=== PATIENT | female | born 1975 | race Caucasian/White ===

== ENCOUNTER 2024-09-09 13:22 | Emergency (ER) | payer MEDICAID, SELFPAY ==
[2024-09-09 13:32] VITALS: BP 123/86; PULSE 95; RESP 18; TEMP 36.6; O2SAT 98
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
[2024-09-09 16:23] VITALS: BP 118/78; PULSE 75; RESP 18; TEMP 36.7; O2SAT 96
[2024-09-09] MEDS: HYDROcodone/APAP 5/325 TABLET 1 TAB PO (16:28)
== END 2024-09-09 16:33 | disposition home or self-care (01) ==
PROVIDERS: Emergency Provider Emergency Medicine
DX: S52.591A Other fractures of lower end of right radius, initial encounter for closed fracture (principal); S23.3XXA Sprain of ligaments of thoracic spine, initial encounter; S20.219A Contusion of unspecified front wall of thorax, initial encounter; S00.83XA Contusion of other part of head, initial encounter; Y09 Assault by unspecified means
CPT/HCPCS: 29125; 70450; 70486; 71100; 72072; 73100; 73552; 99284; A9270

== ENCOUNTER 2024-10-03 12:37 | Emergency (ER) | payer MEDICAID, SELFPAY ==
[2024-10-03 12:39] VITALS: PULSE 114; RESP 16; O2SAT 99; BMI 24.5
[2024-10-03 12:45] VITALS: BP 151/105; PULSE 103; RESP 20; TEMP 36.6; O2SAT 93
--- NOTE | 2024-10-03 12:46 | PC.NURSE ---
Per patient was at [employer] eating and does not recall eating or doing anything else. Denies drug use. Patient awake, alert and oriented x4, now.
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
[2024-10-03 14:41] LABS: Collection Type, Urine Clean Catch
[2024-10-03 15:12] LABS: Bacteria,Urine Rare; Bilirubin,Urine Negative (Negative); Blood,Urine Negative (Negative); Clarity,Urine Clear (Clear/Hazy); Color,Urine Lt-Yellow (Lt Yel-Yel); Glucose, Urine Negative (Negative); Ketones,Urine Negative (Negative); Leukocyte Esterase,Urine Positive (Negative); Nitrite,Urine Positive (Negative); PH,Urine 6.5 (5.0-7.0); Protein,Urine Negative (Neg - Trace); RBC,Urine 1 /hpf (0-3); Specific Gravity,Urine 1.012 (1.001-1.035); Squamous Epithelial Cell,Urine < 1 /hpf (0-5); Urobilinogen,Urine Negative mg/dL (0.0-1.0); WBC,Urine 5 /hpf (0-5)
[2024-10-03 15:15] LABS: Basophils # (Auto) 0.0 Thou/mm3 (0.0-0.2); Basophils % (Auto) 0 % (0-2.5); Eosinophils # (Auto) 0.1 Thou/mm3 (0.0-0.5); Eosinophils % (Auto) 1 % (0-10); Hematocrit 35.4 % (36.0-46.0); Hemoglobin 11.6 g/dL (12.0-16.0); Immature Granulocytes Auto 0.03 Thou/mm3 (0.00-0.00); Lymphocytes # (Auto) 1.4 Thou/mm3 (1.0-4.8); Lymphocytes % (Auto) 18 % (10-50); Mean Corpuscular HGB Conc 32.8 g/dl (31.0-37.0); Mean Corpuscular Hemoglobin 31.0 pg (25.0-35.0); Mean Corpuscular Volume 95 fL (80-100); Monocytes # (Auto) 0.6 Thou/mm3 (0.0-0.8); Monocytes % (Auto) 7 % (0-12); Neutrophils # (Auto) 5.6 Thou/mm3 (1.8-7.7); Neutrophils % (Auto) 73 % (37-80); Nucleated Red Blood Cell # 0.00 Thou/mm3 (0.00-0.00); Nucleated Red Blood Cell % 0 /100 WBC (0); Platelet Count 287 Thou/mm3 (140-440); RDW Standard Deviation 47.8 fL (36.4-46.3); Red Blood Count 3.74 Miln/mm3 (4.00-5.20); White Blood Count 7.7 Thou/mm3 (3.6-11.0)
[2024-10-03 15:42] LABS: Alanine Aminotransferase 17 U/L (10-49); Albumin, Serum 3.8 gm/dL (3.5-5.0); Albumin/Globulin Ratio 1.4 (1.2-2.2); Alkaline Phosphatase 116 U/L (46-116); Anion Gap 6 (7-16); Aspartate Amino Transferase 23 U/L (0-34); BUN/Creatinine Ratio 21 Ratio (12-20); Bilirubin,Total 0.4 mg/dL (0.3-1.2); Blood Urea Nitrogen 15 mg/dL (9-23); Calcium 8.7 mg/dL (8.3-10.6); Calcium (Corrected) 8.9 mg/dL (8.5-10.1); Carbon Dioxide 30.4 mMol/L (20.0-31.0); Chloride 105 mMol/L (98-107); Creatinine (Component) 0.7 mg/dL (0.6-1.3); Estimated Creatinine Clearance 83.0 mL/min (>60); Globulin 2.8 gm/dL (2.3-3.5); Glucose 95 mg/dL (74-106); Osmolality,Calculated 282 (275-295); Potassium 3.6 mMol/L (3.4-5.1); Sodium 141 mMol/L (136-145); Total Protein 6.6 gm/dL (5.7-8.2); eGFR > 60 See Note
[2024-10-03 15:43] LABS: Culture Indicated,Urine Yes
[2024-10-03 16:01] LABS: Amphetamine/Methamp Scrn,U Positive (Negative); Barbiturate Screen,Urine Negative (Negative); Benzodiazepines Screen,Urine Negative (Negative); Benzoylecgonine Screen, Ur Negative (Negative); Fentanyl Screen,Urine Positive (Negative); Opiate Screen,Urine Negative (Negative); THC Screen,Urine Positive (Negative)
[2024-10-03 17:09] VITALS: BP 134/103; PULSE 92; RESP 18; TEMP 36.6; O2SAT 97
== END 2024-10-03 17:19 | disposition home or self-care (01) ==
PROVIDERS: Emergency Provider Emergency Medicine
DX: T40.411A Poisoning by fentanyl or fentanyl analogs, accidental (unintentional), initial encounter (principal); I47.10 Supraventricular tachycardia, unspecified
CPT/HCPCS: 36415; 80053; 80307; 81001; 85025; 87077; 87086; 87186; 96127; 99283

== ENCOUNTER 2025-02-01 00:10 | Emergency (ER) | payer MEDICAID, SELFPAY ==
--- NOTE | 2025-02-01 00:20 | EKG_ITS ---
[facility] Test Date: 2025-02-01 Pat Name: ARTHUR WISEMAN Department: Room: - Gender: Female Ch[employer] Feeder: : 1975 Requested By: Dawson Barnes Order Number: [id number] Reading MD: Dawson Barnes Measurements Intervals [place] Rate: 86 P: 46 AK: 149 QRS: 62 QRSD: 94 T: 65 QT: 374 QTc: 449 Interpretive Statements SINUS RHYTHM POSSIBLE RIGHT VENTRICULAR CONDUCTION DELAY [RSR (QR) IN V1/V2] MODERATE VOLTAGE CRITERIA FOR LVH, CONSIDER NORMAL VARIANT [MEETS CRITERIA IN ONE OF: R(aVL), S(V1), R(V5), R(V5/V6)+S(V1)] No previous ECG available for comparison /[id number]/S0/[id number].pdf
[2025-02-01 00:21] VITALS: PULSE 106; RESP 16; O2SAT 98; BMI 20.9
--- NOTE | 2025-02-01 00:22 | EDNOTE_ITS ---
ED General RME/HPI General Chief complaint: Overdose Stated complaint: OVERDOSE Time Seen by Provider: 02/01/25 00:20 Arrival date/time: 02/01/25 00:10 Related Data Home Medications ?Medication ?Instructions ?Recorded ?Confirmed Hydrocodone/Acetaminophen * (NORCO 1 tab PO Q4H PRN PA IN #0 tabs 06/01/14 10/325 *) Amitriptyline Hcl * (ELAVIL *) 75 mg PO QDAY ##30 03/13 alprazolam 0.25 mg tablet 0.25 mg PO TID PRN ANXIETY # #45 08/27/15 clonazepam 2 mg tablet 2 mg PO BID ##60 08/27/15 Previous Rx's ?Medication ?Instructions ?Recorded prednisone 10 mg tablet 10 mg PO QDAY #21 tabs 09/17 cyclobenzaprine 10 mg tablet 10 mg PO BID PRN muscle s pasm #10 09/09/24 tabs ibuprofen 800 mg tablet 800 mg PO Q8H PRN pain #20 t abs 09/09/24 Allergies Allergy/AdvReac Type Severity Reaction Status Date / Time No Known Allergies Allergy Verified 02/01/25 00:20 ED Exam Narrative Physical exam: Physical Exam: GENERAL: Somnolent but arousable and does answer questions appropriately, states that she feels cold, appears disheveled HEENT: NC/AT. Moist mucosa. PERRLA/EOMI. CARDIO: Heart RRR, no obvious murmurs, no JVD. PULM: No coughing or visible SOB. Lungs CTA B/L. GI: Abdomen soft, NT/ND, +BS. SKIN/MSK/EXT: L femur removed, replaced with titanium lorne. No wounds/discolo ration/rashes/edema. +Pedal pulses present B/L. NEURO: Oriented x2 (person, place, unknown purpose purpose, does not know what led to her ending up in hospital), Moves extremities x4 no focal neurologic deficits noted. Course Quality Measures none Orders Category Date Time Status Bedside Blood Glucose NOW Care 02/01/25 00:20 Active Waste Reduction Coordinator NOW Care 02/01/25 00:20 Active Continuous Pulse Oximetry NOW Care 02/01/25 00:20 Completed EKG (ED ONLY) *Do not use* NOW Care 02/01/25 00:20 Completed Insert IV NOW Care 02/01/25 00:20 Active EKG (ED Only) Stat Exams 02/01/25 00:20 Draft Acetaminophen Stat Lab 02/01/25 00:54 Completed Alcohol, Blood Medical Stat Lab 02/01/25 00:54 Completed Ammonia Stat Lab 02/01/25 00:54 Completed CBC Stat Lab 02/01/25 00:54 Completed CMP [Comprehensive Metabolic Panel] Stat Lab 02/01/25 00:54 Completed Drug Screen,Urine Stat Lab 02/01/25 01:45 Completed HCG Qualitative,Urine Stat Lab 02/01/25 01:45 Completed Diazepam [Valium] Med 02/01/25 03:22 Discontinued 5 mg PO X1 ONE Potassium Chloride [K-Dur] Med 02/01/25 04:43 Once 20 meq PO X1 ONE Oxygen Delivery NOW RT 02/01/25 00:20 Active Vital Signs Vital signs: Vital Signs Temperature 98.0 F 02/01/25 00:34 Pulse Rate 88 02/01/25 00:34 Respiratory Rate 20 02/01/25 00:34 Blood Pressure 162/100 H 02/01/25 00:34 Pulse Oximetry (%) 97 02/01/25 00:34 Oxygen Delivery Method Room Air 02/01/25 00:34 Discharge Plan Plan Patient Disposition: HOME (Self Care) Discharge Disposition comment: Please follow-up with your primary care provider within 3 days Ask your primary care provider to provide you with services to help with polysubstance use disorder Patient condition on transfer: Stable Prescriptions/Referrals Prescriptions/Med Rec: No Action Hydrocodone/Acetaminophen * (NORCO 10/325 *) 1 TAB tablet 1 tab PO Q4H PRN (Reason: PAIN) Qty: 0 Amitriptyline Hcl * (ELAVIL *) 75 MG tablet 75 mg PO QDAY Qty: 30 alprazolam 0.25 MG tablet 0.25 mg PO TID PRN (Reason: ANXIETY) Qty: 45 clonazepam 2 MG tablet 2 mg PO BID Qty: 60 prednisone 10 MG tablet 10 mg PO QDAY Qty: 21 0RF Rx Instructions: take 6 tablets on 7.24 then 1 less daily 6,5,4,3,2,1 ibuprofen 800 mg tablet 800 mg PO Q8H PRN (Reason: pain) Qty: 20 0RF cyclobenzaprine 10 mg tablet 10 mg PO BID PRN (Reason: muscle spasm) Qty: 10 0RF Referrals: No Primary/Family,Physician [Primary Care Provider] - In 1 week Problem List Clinical Impression: Drug overdose Patient/Caregiver Discharge Instructions Education Materials: Addiction: Getting Help Print Language: Maltese Stand Alone Forms: Melissa Award Info., Patient Portal Info Letter MDM Narrative MDM hospital course (for use when minimal MDM required): HPI: 49-year-old female with past medical history of 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 EMS on the route notes that apparently patient was found in a motel by a friend who told police officers that she was possibly doing fentanyl. Officers at the scene gave the patient 3 rounds of Narcan and she apparently was more awake at that point. EMS transported the patient who had stable vitals but became somnolent again. On examination, physical exam as above, patient presented mildly hypertensive 162/100, heart rate of 88, respiratory rate of 20, afebrile satting 97 on room air. Pertinent lab findings include CBC with stable normocytic anemia, likely vitamin deficiency or iron deficiency as there is no history or physical exam findings of acute blood loss anemia, CMP unremarkable other than mild hypokalemia with K of 3.3, urine drug screen is positive for fentanyl, amphetamines and marijuana. #Polysubstance use disorder #Overdose opioid, fentanyl As noted from history patient had been using fentanyl per friend who was at the scene of the event. She did receive 3 doses of Narcan by officers on the scene EMS transported patient with stable vitals Patient is arousable and does answer questions appropriately Plan: Gave 20mEq of potassium chloride Valium 5mg PO for muscle spasm (2/[address] of L femur) Recommendations to Please follow-up with your primary care provider within 3 days Ask your primary care provider to provide you with services to help with polysubstance use disorder Patient seen and assessed with attending Dr. Washington Barnes, DO PGY-2 Internal Medicine - [facility] Medication Administration(s) Medication Administration History Potassium Chloride (Potassium Chloride 20 Meq Tabcr) 20 meq PO X1 ONE Stop: 02/01/25 04:44 Discontinued Medications Diazepam (Diazepam 5 Mg Tablet) 5 mg PO X1 ONE Stop: 02/01/25 03:23
[2025-02-01 00:34] VITALS: BP 162/100; PULSE 88; RESP 20; TEMP 36.7; O2SAT 97
[2025-02-01 01:17] LABS: Basophils # (Auto) 0.0 Thou/mm3 (0.0-0.2); Basophils % (Auto) 0 % (0-2.5); Eosinophils # (Auto) 0.1 Thou/mm3 (0.0-0.5); Eosinophils % (Auto) 1 % (0-10); Hematocrit 34.7 % (36.0-46.0); Hemoglobin 11.5 g/dL (12.0-16.0); Immature Granulocytes Auto 0.04 Thou/mm3 (0.00-0.00); Lymphocytes # (Auto) 1.3 Thou/mm3 (1.0-4.8); Lymphocytes % (Auto) 14 % (10-50); Mean Corpuscular HGB Conc 33.1 g/dl (31.0-37.0); Mean Corpuscular Hemoglobin 31.0 pg (25.0-35.0); Mean Corpuscular Volume 94 fL (80-100); Monocytes # (Auto) 0.5 Thou/mm3 (0.0-0.8); Monocytes % (Auto) 5 % (0-12); Neutrophils # (Auto) 7.5 Thou/mm3 (1.8-7.7); Neutrophils % (Auto) 79 % (37-80); Nucleated Red Blood Cell # 0.00 Thou/mm3 (0.00-0.00); Nucleated Red Blood Cell % 0 /100 WBC (0); Platelet Count 288 Thou/mm3 (140-440); RDW Standard Deviation 46.5 fL (36.4-46.3); Red Blood Count 3.71 Miln/mm3 (4.00-5.20); White Blood Count 9.5 Thou/mm3 (3.6-11.0)
[2025-02-01 01:31] LABS: Ammonia 15 uMol/L (11-32)
[2025-02-01 01:53] LABS: HCG Qualitative,Urine Negative
[2025-02-01 02:00] VITALS: BP 128/78; PULSE 89; RESP 18; TEMP 36.6; O2SAT 97
[2025-02-01 02:03] LABS: Amphetamine/Methamp Scrn,U Positive (Negative); Barbiturate Screen,Urine Negative (Negative); Benzodiazepines Screen,Urine Negative (Negative); Benzoylecgonine Screen, Ur Negative (Negative); Fentanyl Screen,Urine Positive (Negative); Opiate Screen,Urine Negative (Negative); THC Screen,Urine Positive (Negative)
--- NOTE | 2025-02-01 02:05 | PC.NURSE ---
pt asleep. arouses easily. pt ambulated to BR. steady gait.
[2025-02-01 03:15] VITALS: PULSE 89
[2025-02-01 03:16] LABS: Acetaminophen < 2.0 mcg/mL (10.0-20.0); Alanine Aminotransferase 23 U/L (10-49); Albumin, Serum 4.0 gm/dL (3.5-5.0); Albumin/Globulin Ratio 1.3 (1.2-2.2); Alcohol, Blood Medical < 3.0 mg/dL (0-10.0); Alkaline Phosphatase 119 U/L (46-116); Anion Gap 11 (7-16); Aspartate Amino Transferase 49 U/L (0-34); BUN/Creatinine Ratio 20 Ratio (12-20); Bilirubin,Total 0.6 mg/dL (0.3-1.2); Blood Urea Nitrogen 14 mg/dL (9-23); Calcium 8.9 mg/dL (8.3-10.6); Calcium (Corrected) 8.9 mg/dL (8.5-10.1); Carbon Dioxide 26.0 mMol/L (20.0-31.0); Chloride 106 mMol/L (98-107); Creatinine (Component) 0.7 mg/dL (0.6-1.3); Estimated Creatinine Clearance 89.5 mL/min (>60); Globulin 3.2 gm/dL (2.3-3.5); Glucose 115 mg/dL (74-106); Osmolality,Calculated 286 (275-295); Potassium 3.3 mMol/L (3.4-5.1); Sodium 143 mMol/L (136-145); Total Protein 7.2 gm/dL (5.7-8.2); eGFR > 60 See Note
--- NOTE | 2025-02-01 03:20 | PC.NURSE ---
pt sleeping restlessly. maintaining resp and sats. Arouses easily.
--- NOTE | 2025-02-01 04:46 | PC.NURSE ---
PT IS SLEEPING. AROUSES EASILY, BUT NODS OFF QUICKLY. PT IS DISCHAREGED, HOWEVER, HAS NO WAY TO RETURN TO [place]. TRANSPORTATION WILL BE ARRANGED WHEN SERVICES ARE AVAILABLE.
--- NOTE | 2025-02-01 05:23 | PC.NURSE ---
Valium held. pt asleep.
[2025-02-01 07:05] VITALS: BP 128/78; PULSE 88; RESP 18; TEMP 36.6; O2SAT 98
[2025-02-01 08:09] VITALS: BP 115/71; PULSE 61; RESP 16; TEMP 36.6; O2SAT 99
== END 2025-02-01 08:09 | disposition home or self-care (01) ==
PROVIDERS: Emergency Provider Emergency Medicine
DX: T40.411A Poisoning by fentanyl or fentanyl analogs, accidental (unintentional), initial encounter (principal); F19.10 Other psychoactive substance abuse, uncomplicated; R94.31 Abnormal electrocardiogram [ECG] [EKG]; Z59.00 Homelessness unspecified
CPT/HCPCS: 36415; 80053; 80307; 80320; 80329; 81025; 82140; 85025; 93005; 96127; 99283; A9270; G0480